=== PATIENT | female | born 1960 ===

== ENCOUNTER 2024-09-21 00:19 | Emergency (ER) | payer OTHER ==
[~2024-09-21] VITALS: Ht 165.1 cm; Wt 83.9 kg
[2024-09-21] MEDS ORDERED: LOSA25 PO (04:31)
[2024-09-21] MEDS ORDERED: Ketorolac Tromethamine 30mg Vial IM ONE (05:45)
[2024-09-21] MEDS ORDERED: Benzonatate 100 MG Cap PO ONE (05:50)
[2024-09-21 08:22] LABS: CORONAVIRUS COVID-19 AG Negative (NEGATIVE); INFLUENZA A AG Negative (NEGATIVE); INFLUENZA B AG Negative (NEGATIVE)
[2024-09-21] MEDS ORDERED: BENZ100A PO (08:30)
[2024-09-21] MEDS ORDERED: NAPR500 PO (08:30)
[2024-09-21] MEDS ORDERED: PRED20 PO (08:30)
[2024-09-21] MEDS ORDERED: ALBU90OI INH (08:30)
[2024-09-21] MEDS ORDERED: Cyclobenzaprine HCl 10 MG Tab PO ONE (08:40)
== END 2024-09-21 09:15 | disposition home or self-care (01) ==
LOC: ER 00:19
PROVIDERS: Emergency Medicine
DX: J06.9 Acute upper respiratory infection, unspecified (principal); M79.10 Myalgia, unspecified site; I10 Essential (primary) hypertension; Z88.2 Allergy status to sulfonamides; Z88.0 Allergy status to penicillin; Z79.899 Other long term (current) drug therapy; Z11.52 Encounter for screening for COVID-19
CPT/HCPCS: 71046; 87428-QW; 96372; 99283-25; A9270; J1885